=== PATIENT | female | born 1985 | race Caucasian/White ===

== ENCOUNTER → 2019-12-21 | Outpatient (CLI) | payer OTHER ==
[2019-12-21 13:06] LABS: Basophils # (A) 0.1 k/uL (0-0.2); Basophils % (A) 1 %; Eosinophils # (A) 0.1 k/uL (0-0.7); Eosinophils % (A) 2 %; HCT 40.2 % (34.0-46.0); HGB 12.8 gm/dL (11.4-16.0); Lymphocytes # (A) 2.2 k/uL (1.0-4.8); Lymphocytes % (A) 34 %; MCH 28.4 pg (25.0-35.0); MCHC 31.8 g/dL (31.0-37.0); MCV 89.3 fL (80.0-100.0); Mean Platelet Volume 13.3; Monocytes # (A) 0.5 k/uL (0-1.0); Monocytes % (A) 8 %; Neutrophils # (A) 3.5 k/uL (1.3-7.7); Neutrophils % (A) 52 %; Platelet Count 149 k/uL (150-450); RBC 4.51 m/uL (3.80-5.40); RDW 12.7 % (11.5-15.5); WBC 6.6 k/uL (3.8-10.6)
[2019-12-21 14:04] LABS: Large Platelets Present
== END | disposition home or self-care (01) ==
LOC: LABPAT 10:49
PROVIDERS: ATTEND Obstetrics & Gynecology
DX: Z01.818 Encounter for other preprocedural examination (principal); N92.0 Excessive and frequent menstruation with regular cycle; N94.6 Dysmenorrhea, unspecified
CPT/HCPCS: 36415; 85025

== ENCOUNTER 2019-12-29 05:52 | Day surgery (SDC) | payer OTHER ==
[2019-12-23 15:38] VITALS: BMI 28.3
[~2019-12-29 05:52] MED LIST: Pre Op ABX Message 1 EACH MISC MISCELLANE ONE
[2019-12-29] MEDS ORDERED: LIDOCAINE 1% (10MG/ML) FOR IV START INTRADERMA PRN (06:12)
[2019-12-29] MEDS ORDERED: HYDROmorphone 0.5 MG/0.5 ML SYRINGE IVP PRN (06:12)
[2019-12-29] MEDS ORDERED: DEXAMETHASONE SOD PHOSPHATE 10 MG/ML 1 ML VIAL IV ONE (06:12)
[2019-12-29] MEDS ORDERED: ONDANSETRON 4 MG/2 ML VIAL IVP ONE (06:12)
[2019-12-29] MEDS ORDERED: MIDAZOLAM 2 MG/2 ML VIAL IV PRN (06:12)
[2019-12-29] MEDS ORDERED: fentaNYL (PF) 50 MCG/ML 2 ML AMP IVP PRN (06:12)
[2019-12-29] MEDS ORDERED: LACTATED RINGERS 1,000 ML IV SCH (06:12)
[2019-12-29] MEDS ORDERED: KETOROLAC 15 MG/ML 1 ML VIAL ONE (06:51)
[2019-12-29] MEDS ORDERED: MIDAZOLAM 2 MG/2 ML VIAL ONE (06:51)
[2019-12-29] MEDS ORDERED: PROPOFOL 10 MG/ML 20 ML VIAL IV ONE (06:51)
[2019-12-29] MEDS ORDERED: fentaNYL (PF) 50 MCG/ML 2 ML AMP ONE (06:51)
[2019-12-29] MEDS ORDERED: LIDOCAINE 1% INJ 10MG/ML (20 ML MDV) ONE (06:51)
--- NOTE | 2019-12-29 07:24 | P.OP ---
Date of Procedure: 12/29/19 Preoperative Diagnosis: Hypermenorrhea, dysmenorrhea. Postoperative Diagnosis: Same, normal-appearing endometrial cavity Procedure(s) Performed: Hysteroscopy, NovaSure endometrial ablation Anesthesia: DIPIKA Surgeon: Lea Nicole Estimated Blood Loss (ml): 3 IV fluids (ml): 200 Urine output (ml): 200 Pathology: none sent Condition: stable Disposition: PACU Description of Procedure: Patient is brought to the operating suite where a general anesthetic is administered without difficulty. She's placed in the dorsal lithotomy position. The appropriate timeout is performed to assure proper patient and procedural identification. The cervix, vagina, perineal bodies are all prepped and draped in the usual sterile fashion. Examination under anesthesia reveals an anteverted uterus, negative adnexa bilaterally. The bladder is drained for approximately 200 mL of clear yellow urine. Weighted speculum was placed into the vagina. Anterior lip of the cervix is grasped with a double-tooth tenaculum. Uterus sounds to a depth of 8 cm in the anteverted position. The cervix is gently and systematically dilated using Hanks dilators. Hysteroscope is then placed and the cavity is distended with sterile saline. Bilateral ostia are noted, no fibroids, septa or defects appreciated. Hysteroscope was removed. NovaSure wand is placed and seated appropriately. The uterine depth of 6.0 cm, width of 4.3 cm is noted in calibrated. The machine is properly enabled. For a minute and 14 seconds the procedure is carried out. When the procedure is completed, the wand is removed and inspected. It appears to contain a fair amount of charred tissue as expected. The hysteroscope is then replaced and the cavity is noted to be uniformly blanched. All instrumentation is removed from the cervix and vagina. Cervix is clean and dry. All sponge needle and instrument counts are correct. Patient is given Toradol prior to leaving the operative suite. She is brought back to the recovery room in stable condition with a blood pressure 116/74, pulse 79, 98% O2 saturation. She will follow-up with me in the office in 2 weeks.
[2019-12-29 07:35] VITALS: TEMP 97.4
[2019-12-29 08:05] VITALS: RESP 16
[2019-12-29] MEDS ORDERED: IBUPROFEN 200 MG TAB PO ONE (08:56)
[2019-12-29 09:13] VITALS: BP 125/76; PULSE 65
== END 2019-12-29 09:16 | disposition home or self-care (01) ==
LOC: OR 05:52
PROVIDERS: ATTEND Obstetrics & Gynecology
DX: N92.0 Excessive and frequent menstruation with regular cycle (principal); N94.6 Dysmenorrhea, unspecified; N85.4 Malposition of uterus; Z98.51 Tubal ligation status; F41.9 Anxiety disorder, unspecified; Z87.42 Personal history of other diseases of the female genital tract; Z86.2 Personal history of diseases of the blood and blood-forming organs and certain disorders involving the immune mechanism; Z98.890 Other specified postprocedural states; Z79.899 Other long term (current) drug therapy; Z80.3 Family history of malignant neoplasm of breast; Z80.1 Family history of malignant neoplasm of trachea, bronchus and lung
CPT/HCPCS: 81025; 58563; J2250; J1100; J2405; J2001; J3010; J1885; J2704